=== PATIENT | female | born 1985 | race Caucasian/White ===

== ENCOUNTER 2025-07-23 01:35 | Inpatient (IN) | payer OTHER, SELFPAY ==
[2025-07-23 01:43] VITALS: BMI 28.8
[2025-07-23 01:58] VITALS: BP 111/69
[2025-07-23] MEDS: LR 1000 IV (02:00)
[2025-07-23 02:12] LABS: Hematocrit 38.2 % (37.0-47.0); Hemoglobin 13.0 g/dL (12.0-16.0); Mean Corp Hgb Conc. 34.0 g/dL (33.0-37.0); Mean Corpuscular Volume 88.8 fL (81.0-99.0); Nucleated Red Blood Cells % 0 %; Platelet Count 182 10^3/uL (130-400); Red Cell Dist. Width 13.5 % (11.5-14.5)
[2025-07-23] MEDS: PENICILLIN 110 UNITS IV (02:18)
[2025-07-23] MEDS: PITOCIN 30 UNITS/NSS 500 ML IV (02:32)
[2025-07-23] MEDS: XYLOCAINE-MPF 1% VIAL 30 ML INFIL (02:35)
[2025-07-23] MEDS: MOTRIN 600 MG PO ×3 (03:58→17:19)
[2025-07-23] MEDS: COLACE 100 MG PO ×2 (10:50→20:13)
[2025-07-23] MEDS: TYLENOL 650 MG PO ×2 (10:50→17:20)
[2025-07-23 13:33] LABS: Syphilis/T. pallidum Ab Reflex Negative (Negative)
[2025-07-23] MEDS: PRENATAL PLUS 1 TABLET PO (20:12)
[2025-07-24] MEDS: TYLENOL 650 MG PO ×4 (03:23→21:40)
[2025-07-24] MEDS: MOTRIN 600 MG PO ×3 (03:23→16:39)
[2025-07-24 06:11] LABS: Hematocrit 34.8 % (37.0-47.0); Hemoglobin 11.7 g/dL (12.0-16.0)
[2025-07-24] MEDS: COLACE 100 MG PO ×2 (09:13→20:06)
[2025-07-24] MEDS: PRENATAL PLUS 1 TABLET PO (21:36)
[2025-07-25] MEDS: MOTRIN 600 MG PO ×2 (03:44→11:49)
[2025-07-25] MEDS: TYLENOL 650 MG PO (03:48)
[2025-07-25] MEDS: COLACE 100 MG PO (08:08)
[2025-07-27 13:34] LABS: Syphilis/T. pallidum Ab Reflex Negative (Negative)
== END 2025-07-25 13:58 | disposition home or self-care (01) | DRG 807 ==
LOC: LDRP 01:35
PROVIDERS: ADMITTING PHYSICIAN Obstetrics & Gynecology
PROC: 10E0XZZ Delivery of Products of Conception, External Approach (ICD-10-PCS; 2025-07-23)
PROC: 0KQM0ZZ Repair Perineum Muscle, Open Approach (ICD-10-PCS; 2025-07-23)
DX: O48.0 Post-term pregnancy (principal); Z37.0 Single live birth; Z3A.40 40 weeks gestation of pregnancy; O99.824 Streptococcus B carrier state complicating childbirth; O77.0 Labor and delivery complicated by meconium in amniotic fluid; O70.1 Second degree perineal laceration during delivery
CPT/HCPCS: 36415; 85014; 85018; 85025; 86780; 86850; 86900; 86901; 88307